=== PATIENT | female | born 1945 | race African-American/Black ===

== ENCOUNTER 2021-04-16 14:50 | Emergency (ER) | payer OTHER ==
--- OUTSIDE RECORDS SUMMARY | 2021-04-16 14:53 | XMS REPORT | Continuity of Care Document ---
:[address] [facility] t Address [address] [place] [place] [address] Care Team Providers Name Role Phone Tylor Avery MD Attending Clinician Smooth Nguyen MD Attending Clinician Unavailable Payers Payer Name Policy Type Policy Effective Date Expiration Date Sour ce Number COVID VACCINE [id number] 2020-11-25 [facility] ADMIN / 00:00:00 - Medical TESTINGCOVID Center VACCINE ADMIN / [id number] 01/2021-Present Problems This patient has no known problems. Allergies, Adverse Reactions, Alerts Allergy Allergy Status Severity Reaction(s) Onset Inactive Treating Comm ents Source Name Type Date Date Clinician [place] DA Active 2018-09 [facility] 0[facility]14 [place] [facility] d [facility] codeine DA Active SV 2018-09 [facility] 0-14 [place] 00:00: d 00 [facility] codeine DA Active 2017-09 [facility] 2-10 [place] 00:00: d 00 [facility] PCN DA Active SV 2017- [facility] 10-13 [facility] 00:00: d 00 [facility] Center Social History Social Habit Start Date Stop Date Quantity Comments Source Sex Assigned At [facility] Medications This patient has no known medications. Immunizations Ordered Immunization Filled Immunization Date Status Commen ts Source Name Name Covid-19 Vaccine 2020-12-[address] [facility] (Pf) 00:00:00 [facility] (Pfizer/biontech) Covid-19 Vaccine 2020-11-[address] [facility] (Pf) 00:00:00 [facility] (Pfizer/biontech) Procedures This patient has no known procedures. Plan of Care Planned Activity Planned Date Details Comments Source Future Scheduled 2021-05-[address] [facility] 00:00:00 (Season Ended) [code = Medic al Center INFLUENZA VACCINE (Season Ended)] Future Scheduled 2020-09-[address] [facility] Test 00:00:00 (12+) [code = Medical Center DEPRESSION SCREENING (12+)] Future Scheduled 2012 PNEUMOCOCCAL 65+ YRS [facility] - Test 00:00:00 (1 of 1 - Medical Center [id number] PCV13) [code = PNEUMOCOCCAL 65+ YRS (1 of 1 - [id number] PCV13)] Future Scheduled 1997 SHINGLES VACCINES ([address] [facility] - Test 00:00:00 of 2) [code = SHINGLES Medic al Center VACCINES (1 of 2)] Future Scheduled 1966 DTAP/TDAP/TD VACCINES [facility] 00:00:00 (1 - Tdap) [code = Medical C enter DTAP/TDAP/TD VACCINES (1 - Tdap)] Future Scheduled 1965 HEPATITIS C SCREENING [facility] 00:00:00 [code = HEPATITIS C Medical Center SCREENING] Future Scheduled [address] [facility] (procedure) [code = 374351476] Future Scheduled [address] [facility] 00:[facility]:00 [facility] colon (procedure) [code = 910354298] Encounters Start End Encounter Admission Attending Care Care Encounter Source Date/Time Date/Time Type Type Clinicians Facility Department ID 2020-06-22 2020-06-22 Outpatient [facility] [address] [facility] 10:39:00 10:39:00 Results Test Description Test Time Test Comments Results Result Comments Source COMPREHENSIVE METABOLIC PANEL 2019-06-19 04:51:00 Test Item Value Reference Range Interpretation Comme nts SODIUM (test code = NA) 136 mmol/L 137-145 L POTASSIUM (test code = K) 4.3 mmol/L 3.4-5.0 N CHLORIDE (test code = CL) 102 mmol/L 98-107 N CARBON DIOXIDE (test code = CO2) 27 mmol/L 22-30 N GLUCOSE (test code = GLU) 109 mg/dL 74-106 H BLOOD UREA NITROGEN (test code = 10 mg/dL 7-17 N BUN) GLOMERULAR FILTRATION RATE (test 91 >60 The estimated glomerular code = GFR) filtration rate is computed usingpatient ra ce, age (>18), sex, and serum creatinine. If anyof the neede d data elements are missing the Laboratory cannot compute an estimation of the glomerular filtration rate. CREATININE (test code = CREAT) 0.8 mg/dL 0.5-1.0 N TOTAL PROTEIN (test code = PROT) 5.5 g/dL 6.3-8.2 L ALBUMIN (test code = ALB) 2.8 g/dL 3.5-5.0 L CALCIUM (test code = CA) 8.2 mg/dL 8.4-10.2 L BILIRUBIN TOTAL (test code = 1.0 mg/dL 0.2-1.3 N BILT) BILIRUBIN CONJUGATED (test code 0 mg/dL 0-0.3 N ~~~~~~~~~~~~~~~~~~~~~~~~~~~~~~~ = BILCON) ~~~~~~~~~~~~~~~ ~~~~~~~~~~~~~~CO NJUGATED BILIRU BIN IS THE REPLACEMENT ASS AY FOR DIRECTBILIRUBIN .~~~~~~~~~~~~~~~ ~~~~~~~~~~~~~~~ ~~~~~~~~~~~~~~~~ ~~~~~~~~~~~~~~ BILIRUBIN UNCONJUGATED (test 0.9 mg/dL 0-1.1 N code = BILUNC) SGOT/AST (test code = AST) 21 U/L 15-46 N SGPT/ALT (test code = ALT) 27 U/L 13-69 N ALKALINE PHOSPHATASE (test code 55 U/L 38-126 N = ALKP) CBC W/AUTO [id number] 04:35:00 Test Item Value Reference Range Interpretation Comments WHITE BLOOD CELL (test code = 5.1 x10 3/uL 5.0-12.0 N WBC) RED BLOOD CELL (test code = 3.75 x10 6/uL 4.20-5.40 L RBC) HEMOGLOBIN (test code = HGB) 9.6 g/dL 12.0-16.0 L HEMATOCRIT (test code = HCT) 31.7 % 36.0-46.0 L MEAN CELL VOLUME (test code = 85 fL 81-99 N MCV) MEAN CELL HGB (test code = MCH) 25.6 pg 27-31 L MEAN CELL HGB CONCENTRATION 30.3 g/dL 33-37 L (test code = MCHC) RED CELL DISTRIBUTION WIDTH 15.5 % 11.5-15.5 N (test code = RDW) PLATELET COUNT (test code = 83 x10 3/uL 130-400 L PLT) MEAN PLATELET VOLUME (test code 11.9 fL 9.4-16.4 N = MPV) NEUTROPHIL % (test code = NT%) 78.3 % 43-65 H IMMATURE GRANULOCYTE % (test 0.8 % 0.0-2.0 N code = IG%) LYMPHOCYTE % (test code = LY%) 8.3 % 20.5-45.5 L MONOCYTE % (test code = MO%) 11.0 % 5.5-11.7 N EOSINOPHIL % (test code = EO%) 1.2 % 0.9-2.9 N BASOPHIL % (test code = BA%) 0.4 % 0.2-1.0 N NUCLEATED RBC % (test code = 0.0 % 0-1.0 N NRBC%) NEUTROPHIL # (test code = NT#) 3.98 x10 3/uL 2.2-4.8 N IMMATURE GRANULOCYTE # (test 0.04 x10 3/uL 0-0.03 H code = IG#) LYMPHOCYTE # (test code = LY#) 0.42 x10 3/uL 1.3-2.9 L MONOCYTE # (test code = MO#) 0.56 x10 3/uL 0.3-0.8 N EOSINOPHIL # (test code = EO#) 0.06 x10 3/uL 0.0-0.2 N BASOPHIL # (test code = BA#) 0.02 x10 3/uL 0.0-0.1 N - XR KNEE 1 OR 2 V [id number] 16:38:00 FAX: Crow Salas MD [phone] [place]: St: [facility] FAX: Benedict Zee MD [phone] Name: LILY MARISCAL [facility] : 1945 Age/S: 74/F [address] Unit #: [id number] Loc: C.[address] [place] [address] Phys: Crow Hickey MD Acct: [id number] Dis Date: Status: ADM IN PHONE #: [phone] Exam Date: 06/17/2019 1612 FAX #: [phone] Reason: POSTOP EXAMS: CPT CODE: [id number] XR KNEE 1 OR 2 V RT [id number] EXAM: Right knee series, 2 views Dictation location: B2 INDICATION: Postop COMPARISON: None. DISCUSSION: Frontal and crosstable lateral views of the right knee are submitted. There is slight motion artifact on the frontal view. There is appropriate appearance of the total right knee arthroplasty hardware, without evidence of fracture. IMPRESSION: Appropriate appearance of the total right knee arthroplasty hardware. at 1638 Reported and signed by: Triston Lara MD CC: Crow Hickey M.D.; Benedict Han MD Technologist: Rocio Bianchi Trnscrd Date/Time/By: 06/17/2019 (8097) : By: [email or web address] PAGE 1 Signed Report FAX: Corw Salas MD [phone] [place]: St: ADM FAX: Benedict Zee MD [phone] [facility] 1945 Age/S: 74[facility]F [address] Unit #: [id number] Loc: C [address] [place] [address] Phys: Crow Hickey MD Acct: [id number] Dis Date: Status: ADM IN PHONE #: [phone] Exam Date: 06/17/2019 1612 FAX #: [phone] Reason: POSTOP EXAMS: CPT CODE: [id number] XR KNEE 1 OR 2 V RT 25202 <Continued> Orig Print D/T: S: 06/17/2019 (6568) PAGE 2 Signed Report- XR CHEST 2 [id number] 10:27:00 FAX: Crow Salas MD [phone] [place]: St: PRE Name: LILY MARISCAL [facility] : 1945 Age/S: 74/F [address] Unit#: [id number] Loc: C.[address] [place] [id number] Phys: Crow Hickey MD Acct: [id number] Dis Date: Status: PRE IN PHONE #: [phone] Exam Date: 06/16/2019 1010 FAX #: [phone] Reason: PREOP EXAMS: CPT CODE: [id number] XR CHEST 2 V 00295 C3 EXAM: - XR CHEST 2 V HISTORY: PREOP COMPARISON: None FINDINGS: The lungs are clear. No pleural effusion or pneumothorax. The cardiac silhouette is within normal limits. No acute osseous abnormalities. IMPRESSION: No acute cardiopulmonary disease. at 1027 Reported and signed by: Arnulfo Juan MD CC: Crow Hickey M.D. Technologist: Evelyne Johnson; STUDENT 2ND YEAR Trnscrd Date/Time/By: 06/16/2019 (102) : By:[email or web address] PAGE 1 Signed Report FAX: Y Crow Hickey MD [phone] [place]: St: PRE Name: LILY MARISCAL [facility] : 1945 Age/S: 74/F [address] Unit #: [id number] Loc: C.[address], [place] [address] Phys: Crow Hickey MD Acct: [id number] Dis Date: Status: PRE IN PHONE #: [phone] Exam Date: 06/16/2019 1010 FAX #: [phone] Reason: PREOP EXAMS: CPT CODE: [id number] XR CHEST 2 V [id number] <Continued> Orig Print D/T: S: 06/16/2019 (1034) PAGE 2 Signed Report
--- NOTE | 2021-04-16 16:20 | RAD REPORT ---
EXAM DESCRIPTION: CT - Head Brain Wo Cont - 04/16/2021 3:46 pm CLINICAL HISTORY: CONFUSED, altered mental status COMPARISON: <Comparisons> TECHNIQUE: Axial 5 mm thick images of the head were obtained without IV contrast. All CT scans are performed using dose optimization technique as appropriate and may include automated exposure control or mA/KV adjustment according to patient size. FINDINGS: No intracranial hemorrhage, mass, edema or shift of mid-line structures. No acute infarcti on changes seen. No abnormal extra-axial fluid collections. Ventricles are normal. No significant atr ophy. Patient does have mild chronic ischemic change evident. Mastoid air cells and visualized portions of the paranasal sinuses are clear. No acute bony findings. IMPRESSION: Negative non-contrast CT head examination for acute finding.
[2021-04-16 17:21] LABS: Absolute Lymphocytes (CBC) 0.3 K/uL (0.7-4.9); Basophils % 0.3 % (0-1.3); Hematocrit 47.7 % (36.0-45.0); Lymphocytes % 2.1 % (15.3-44.8); MPV 9.2 fL (7.6-11.3); RBC Red Blood Cell Count 5.76 M/uL (3.86-4.86)
[2021-04-16 17:39] LABS: Bilirubin Direct 0.4 mg/dL (0-0.2); Bilirubin Total 1.6 mg/dL (0.2-1.0); Protein, Total 8.9 g/dL (6.4-8.2)
[2021-04-16 18:14] LABS: Blood Morphology Comment NOT SEEN (NOT SEEN); Platelet Estimate ADEQ; White Blood Cell Scan OK (OK)
[2021-04-16 18:27] LABS: Urine Blood 2+ (Negative); Urine Glucose Trace (Negative); Urine Protein 3+ (Negative); Urine Specific Gravity 1.025 (1.005-1.030)
[2021-04-16 18:55] LABS: Urine Bacteria >50 /HPF (<20)
[2021-04-16] MEDS ORDERED: CEFTRIAXONE/SWI 1gm 1 GM/10 ML SYR ONE (19:40)
--- NOTE | 2021-04-16 19:42 | RAD REPORT ---
EXAM DESCRIPTION: CT - Abdomen Pelvis W Contrast - 04/16/2021 7:01 pm CLINICAL HISTORY: ABD PAIN COMPARISON: No comparisons TECHNIQUE: Biphasic, helical CT imaging of the abdomen and pelvis was performed following 100 ml non -ionic IV contrast. No oral contrast administered. All CT scans are performed using dose optimization technique as appropriate and may include automated exposure control or mA/KV adjustment according to patient size. FINDINGS: No suspicious findings in the lung bases. Multiple liver cysts are present including a 3.4 centimeter left lobe cyst. No portal vein abnormalit y. No splenomegaly or focal splenic finding. No acute pancreatic process identifiable. Gallbladder is grossly dilated measuring 14 cm in length by 4.5 cm transverse. There is at least 1 l arge 2 centimeter gallstone present in the body. Additional stones and sludge could be present an occ ult on CT imaging. A 2 centimeter stone in the gallbladder may be present as well. Gallbladder wall is slightly thickened. Biliary tree is enlarged 8-9 mm. No duct stone seen. Duct stones can be occult . No pancreatic or duodenal mass identifiable. Symmetric renal function is seen with no hydronephrosis or suspicious renal mass. No pyelonephritis o r acute parenchymal process. Renal cysts are present. Largest is mid left kidney 5.3 cm. Small benign -appearing right adrenal mass present. Contracted urinary bladder shows no gross abnormality. No dilated bowel loops or bowel wall thickening. No acute bowel process is identifiable. There is div erticulosis without diverticulitis. Uterus is absent. No ovarian based mass identified. No free air, free fluid or inflammatory stranding. No hernia, mass or bulky lymphadenopathy. No suspicious bony findings. IMPRESSION: Markedly dilated gallbladder, possibly gallbladder hydrops, measuring 14 cm in length by 4.5 cm transverse. There is one 2 centimeter gallstone confirmed with of a second 2 centimeter galls tone suspected near the neck. Dilatation of the biliary tree to 8-9 mm with no duct stone seen. Duct stones can be occult. No acute or TAPE COATER process. No acute finding of the bowel.
--- NOTE | 2021-04-16 20:38 | RAD REPORT ---
EXAM DESCRIPTION: US - Abdomen Exam Limited - 04/16/2021 7:52 pm CLINICAL HISTORY: ABD PAIN COMPARISON: Abdomen Pelvis W Contrast dated 04/16/2021 FINDINGS: Dilated gallbladder is identified matching the CT finding. A 2 cm stone is seen near the n mayra of the gallbladder. No large quantity of sludge. A second stone, suspected on the CT study, could not be confirmed. Gallbladder wall does not appear thickened. No pericholecystic fluid. Common bile duct is upper normal to slightly enlarged. No duct stone identifiable. IMPRESSION: Approximately 2 centimeter stone is present in the neck of the gallbladder which is enla rged to 14 cm in length by approximately 4 cm diameter. Gallbladder wall is not thickened and no pericholecystic fluid confirmed. Upper normal to slightly enlarged biliary tree. No duct stone seen.
[2021-04-16 21:36] LABS: Troponin (Emerg Dept Use Only) 0.14 ng/mL (0.0-0.045)
[2021-04-16] MEDS ORDERED: NA CHLORIDE 0.9% 1,000 ML ONE (21:42)
--- NOTE | 2021-04-16 22:38 | ER ---
Nurse's Notes [facility] Name: Crystal Peterosn Age: 75 yrs Sex: Female : 1945 Arrival Date: 04/16/2021 Time: 14:58 Bed 25 Private MD: Diagnosis: Cholelithiasis with possible choledocolithisis;Dizzness;Elevated Troponin Level Presentation: 04/16 15:14 Chief complaint: Patient states: mid back pain, upper abd pain that began yesterday ss with confusion and intermittent nausea that started this morning. Coronavirus screen: Client denies travel out of the [place] in the last 14 days. Ebola Screen: Patient denies exposure to infectious person. Patient denies travel to an Ebola-affected area in the 21 days before illness onset. Initial Sepsis Screen: Does the patient meet any 2 criteria? No. Patient's initial sepsis screen is negative. Does the patient have a suspected source of infection? No. Patient's initial sepsis screen is negative. Risk Assessment: Do you want to hurt yourself or someone else? Patient reports no desire to harm self or others. Onset of symptoms was April 15, 2021. 15:14 Method Of Arrival: Ambulatory ss 15:14 Acuity: EFRAÍN 3 ss Historical: - Allergies: 15:17 codeine sulfate; ss - Home Meds: 15:17 amlodipine oral [Active]; rosuvastatin oral [Active]; Hydrochlorothiazide Oral [Active];ss - PMHx: 15:17 Hypertensive disorder; ss - Immunization history:: Adult Immunizations up to date, Client reports receiving the 2nd dose of the Covid vaccine. - Social history:: Smoking status: Patient denies any tobacco usage or history of. Screenin:30 Abuse screen: Denies threats or abuse. Denies injuries from another. Nutritional hb screening: No deficits noted. Tuberculosis screening: No symptoms or risk factors identified. Fall Risk None identified. Assessment: 17:30 General: Appears in no apparent distress. Behavior is calm, cooperative. Pain: Pain hb currently is 5 out of 10 on a pain scale. Neuro: Level of Consciousness is awake, alert, obeys commands, Oriented to person, place, situation. Cardiovascular: Patient's skin is warm and dry. Respiratory: Airway is patent Respiratory effort is even, unlabored, Respiratory pattern is regular, symmetrical. GI: No signs and/or symptoms were reported involving the gastrointestinal system. : No signs and/or symptoms were reported regarding the genitourinary system. EENT: No signs and/or symptoms were reported regarding the EENT system. Derm: Skin is pink, warm \\T\\ dry. Musculoskeletal: Reports back pain. 18:19 Reassessment: Patient appears in no apparent distress at this time. No changes from hb previously documented assessment. Patient and/or family updated on plan of care and expected duration. Pain level reassessed. 21:23 Reassessment: Patient appears in no apparent distress at this time. No changes from zb previously documented assessment. Patient and/or family updated on plan of care and expected duration. Pain level reassessed. Patient is alert, oriented x 3, equal unlabored respirations, skin warm/dry/pink. Iv fluid infusing. patient repositioned. 22:30 Reassessment: Patient appears in no apparent distress at this time. Patient and/or zb family updated on plan of care and expected duration. Pain level reassessed. Patient is alert, oriented x 3, equal unlabored respirations, skin warm/dry/pink. 23:31 Reassessment: patient c/o of pain. notified ecp. zb 23:58 Reassessment: report given to EMS patient transferred to [facility]. attempted to call zb family per pt requesting. Vital Signs: 15:14 BP 156 / 108; Pulse 107; Resp 16; Temp 97.1(TE); Pulse Ox 100% on R/A; Height 5 ft. 5 ss in. (165.10 cm); Pain 5/10; 18:00 BP 158 / 98; Pulse 102; Resp 17; Pulse Ox 100% on R/A; Pain 8/10; hb 21:20 BP 152 / 78; Pulse 95; Resp 16; Pulse Ox 99% on R/A; zb 23:29 BP 173 / 93; Pulse 103; Resp 18; Pulse Ox 100% on R/A; zb 23:37 BP 166 / 87; Pulse 96; Resp 16; Pulse Ox 100% on R/A; zb ED Course: 14:58 Patient arrived in ED. ds1 15:17 Triage completed. ss 15:17 Arm band placed on right wrist. ss 15:45 CT Head Brain wo Cont In Process Unspecified. EDMS 17:10 Initial lab(s) drawn, by me, sent to lab. Inserted saline lock: 22 gauge in right mb4 antecubital area, using aseptic technique. Blood collected. 17:27 Mary Castillo, RN is Primary Nurse. hb 17:30 Patient has correct armband on for positive identification. Bed in low position. Call light in reach. 18:09 Ottoniel Villalta MD is Attending Physician. tw4 19:06 CT Abd/Pelvis - IV Contrast Only In Process Unspecified. EDMS 19:12 Attending Physician role handed off by Ottoniel Villalta MD mh7 19:12 Don Valdes MD is Attending Physician. 7 19:27 Primary Nurse role handed off by Mary Castillo RN mw2 19:52 US Abdomen Limited In Process Unspecified. EDMS 19:59 Mary Castillo RN is Primary Nurse. hb 21:31 initiated a transfer with [employer] Supervisor from [facility]. He stated "[facility] at the moment.". 21:41 initiated a transfer with Nick from [facility] Transfer [place]. mw2 22:[address] Valdes with the GI doctor from [facility]. mw2 22:[address] Valdes with the Hospitalist from [facility]. mw2 22:51 Chest Single View XRAY In Process Unspecified. EDMS 23:13 administrative approval given by Nick Friend/ patient has been accepted to [address] [place] bed 2447/ Dr. Moe accepted the patient in transfer/ report to be called to [phone]. 04/17 00:02 No provider procedures requiring assistance completed. Patient transferred, IV remains zb in place. Administered Medications: 04/16 19:59 Drug: Rocephin (cefTRIAXone) 1 grams Route: IV; Rate: calculated rate; Site: right hb antecubital; 23:23 Follow up: Response: No adverse reaction; IV Status: Completed infusion; IV Intake: 10mlzb 21:22 Drug: NS 0.9% 1000 ml Route: IV; Rate: 1000 ml; Site: right antecubital; zb 23:24 Follow up: Response: No adverse reaction; IV Status: Completed infusion; IV Intake: zb 1000ml 23:23 Drug: Potassium Chloride 40 mEq Route: PO; zb 23:24 Follow up: Response: No adverse reaction zb 23:23 Drug: Zosyn (piperacillin-tazobactam) 3.375 grams Route: IVPB; Infused Over: 60 mins; zb Site: right antecubital; 23:52 Follow up: Response: No adverse reaction; IV Status: Infusion continued upon transfer; zb IV Intake: 10ml 23:23 Drug: Aspirin Chewable Tablet 324 mg Route: PO; zb 23:52 Follow up: Response: No adverse reaction zb 23:50 Drug: Tylenol 1000 mg Route: PO; zb 23:50 Follow up: Response: Medication administered at discharge. zb Intake: 23:23 IV: 10ml; Total: 10ml. zb 23:24 IV: 1000ml; Total: 1010ml. zb 23:52 IV: 10ml; Total: 1020ml. zb Outcome: 22:37 ER care complete, transfer ordered by MD. healy 04/17 00:04 Transferred by ground EMS to [facility], Transfer form completed. zb Condition: stable Instructed on the need for transfer. 00:05 Patient left the ED. zb Signatures: Dispatcher [employer] [facility] Yap Trayc ds1 Lee Ann Matthew RN RN ss Baxter, Heather, RN RN hb Wadley, Terrence, MD MD 4 Bernie Isaacs [facility] Claire Castillo 4 Don Valdes MD MD Ana Cristina Lou RN RN zb Corrections: (The following items were deleted from the chart) 04/16 22:02 21:31 initiated a transfer with [employer] Supervisor from [place] [id number] 22:37 22:[address] Valdes with the GI doctor from [place] [address] 23:23 21:41 initiated a transfer with Hortencia from [address] 23:23 22:[address] Valdes with the Hospitalist from [place] [address]
--- NOTE | 2021-04-16 22:38 | EDPHYS ---
Physician Documentation [facility] Name: Crystal Peterson Age: 75 yrs Sex: Female : 1945 Arrival Date: 04/16/2021 Time: 14:58 Bed 25 Private MD: ED Physician Don Valdes HPI: 04/16 18:38 This 75 yrs old Black Female presents to ER via Ambulatory with complaints of tw4 Confusion, Dizziness, Back Pain. 18:38 The patient presents with generalized weakness. Onset: The symptoms/episode tw4 began/occurred today. Context: occurred at home. Modifying factors: The symptoms are alleviated by nothing, the symptoms are aggravated by nothing. Associated signs and symptoms: Pertinent positives: abdominal pain, Back pain. Patient's baseline: Neuro: alert and fully oriented, Motor: no deficits, Ambulation: walks without assistance, Speech: normal, The patient has a previous history of chronic drug use. The patient has not experienced similar symptoms in the past. 18:38 Patient is a 75-year-old woman that comes emergency department complaint of upper tw4 right-sided abdominal pain radiates to her back. Patient denies nausea vomiting. Patient states when she initially came in she has some generalized weakness and felt slightly confused. Patient does not have any focal numbness or weakness. Patient denies any changes in her speech. Patient denies fevers or chills. Historical: - Allergies: 15:17 codeine sulfate; ss - Home Meds: 15:17 amlodipine oral [Active]; rosuvastatin oral [Active]; Hydrochlorothiazide Oral [Active];ss - PMHx: 15:17 Hypertensive disorder; ss - Immunization history:: Adult Immunizations up to date, Client reports receiving the 2nd dose of the Covid vaccine. - Social history:: Smoking status: Patient denies any tobacco usage or history of. ROS: 18:38 Constitutional: Negative for fever, chills, and weight loss, Eyes: Negative for injury, tw4 pain, redness, and discharge, Cardiovascular: Negative for chest pain, palpitations, and edema, Respiratory: Negative for shortness of breath, cough, wheezing, and pleuritic chest pain, MS/Extremity: Negative for injury and deformity, Skin: Negative for injury, rash, and discoloration, Neuro: Negative for headache, weakness, numbness, tingling, and seizure. 18:38 Abdomen/GI: Positive for abdominal pain, Negative for nausea and vomiting, nausea, vomiting, and diarrhea, nausea, vomiting, diarrhea, constipation. Exam: 18:38 Constitutional: This is a well developed, well nourished patient who is awake, alert, tw4 and in no acute distress. Head/Face: Normocephalic, atraumatic. Eyes: Pupils equal round and reactive to light, extra-ocular motions intact. Lids and lashes normal. Conjunctiva and sclera are non-icteric and not injected. Cornea within normal limits. Periorbital areas with no swelling, redness, or edema. Chest/axilla: Normal chest wall appearance and motion. Nontender with no deformity. No lesions are appreciated. Cardiovascular: Regular rate and rhythm with a normal S1 and S2. No gallops, murmurs, or rubs. Normal PMI, no JVD. No pulse deficits. Respiratory: Lungs have equal breath sounds bilaterally, clear to auscultation and percussion. No rales, rhonchi or wheezes noted. No increased work of breathing, no retractions or nasal flaring. Back: No spinal tenderness. No costovertebral tenderness. Full range of motion. MS/ Extremity: Pulses equal, no cyanosis. Neurovascular intact. Full, normal range of motion. Neuro: Awake and alert, GCS 15, oriented to person, place, time, and situation. Cranial nerves II-XII grossly intact. Motor strength 5/5 in all extremities. Sensory grossly intact. Cerebellar exam normal. Normal gait. Psych: Awake, alert, with orientation to person, place and time. Behavior, mood, and affect are within normal limits. 18:38 Abdomen/GI: Inspection: abdomen appears normal, Bowel sounds: normal, Palpation: moderate abdominal tenderness, in the right upper quadrant. Vital Signs: 15:14 BP 156 / 108; Pulse 107; Resp 16; Temp 97.1(TE); Pulse Ox 100% on R/A; Height 5 ft. 5 ss in. (165.10 cm); Pain 5/10; 18:00 BP 158 / 98; Pulse 102; Resp 17; Pulse Ox 100% on R/A; Pain 8/10; hb 21:20 BP 152 / 78; Pulse 95; Resp 16; Pulse Ox 99% on R/A; zb 23:29 BP 173 / 93; Pulse 103; Resp 18; Pulse Ox 100% on R/A; zb 23:37 BP 166 / 87; Pulse 96; Resp 16; Pulse Ox 100% on R/A; zb MDM: 22:34 Differential diagnosis: cardiac arrhythmia, hypovolemia, idiopathic dizziness, mh7 near-syncope, syncope. Data reviewed: vital signs, nurses notes, lab test result(s), cardiac enzymes, CBC, electrolytes, urinalysis, EKG, radiologic studies, CT scan, plain films, ultrasound. Data interpreted: Pulse oximetry: on room air is 99 %. Interpretation: normal. Counseling: I had a detailed discussion with the patient and/or guardian regarding: the historical points, exam findings, and any diagnostic results supporting the discharge/admit diagnosis, the presence of at least one elevated blood pressure reading (>120/80) during this emergency department visit, lab results, radiology results, the need to transfer to another facility, [facility] does not immediately have the required specialist. Response to treatment: the patient's symptoms have mildly improved after treatment. Physician consultation: Harsha Mello MD was contacted at 21:00, regarding patient's condition, after a discussion of the case, a recommendation for transfer for higher level of care is made. 22:37 Patient medically screened. [facility] 04/16 15:20 Order name: Basic Metabolic Panel; Complete Time: 18:04 04/16 18:33 Interpretation: Normal except: K 3.0; CL 97; GLUC 148; GFR 89; CA 10.5; NA 135. 04/16 15:20 Order name: CBC with Diff; Complete Time: 18:24 04/16 18:24 Interpretation: Normal except: WBC 14.90; RBC 5.76; HGB 15.1; HCT 47.7; MCH 26.2; MCHC tw4 31.6; GUERA% 92.1; LYM% 2.1. 04/16 15:20 Order name: Hepatic Function; Complete Time: 18:04 04/16 18:04 Interpretation: Normal except: A/G 0.8; GLOB 4.9; TP 8.9; BILID 0.4; BILIT 1.6. 04/16 15:20 Order name: Lipase; Complete Time: 18:04 tw4 08/14 18:05 Interpretation: Normal except: LIP 49. [facility] 04/16 15:20 Order name: Urine Microscopic Only; Complete Time: 19:12 [facility] 04/16 17:25 Order name: CBC Smear Scan; Complete Time: 18:24 [facility] 04/16 18:24 Interpretation: Within normal limits. [facility] 04/16 18:27 Order name: Urine Dipstick-Ancillary; Complete Time: 19:12 [facility] 04/16 18:57 Order name: Urine Culture [facility] 04/16 20:43 Order name: Troponin (emerg Dept Use Only) [facility] 04/16 20:44 Order name: Troponin (Emerg Dept Use Only); Complete Time: 22:17 [facility] 04/16 21:17 Order name: Blood Culture Adult (2) [facility] 04/16 21:18 Order name: Blood Culture [facility] 04/16 21:39 Order name: PROBNP [facility] 04/16 15:20 Order name: IV Saline Lock; Complete Time: 18:19 [facility] 04/16 15:20 Order name: CT Head Brain wo Cont; Complete Time: 18:04 [facility] 04/16 18:09 Interpretation: No acute disease except. [facility] 04/16 18:24 Order name: US Abdomen Limited; Complete Time: 21:01 [facility] 04/16 18:24 Order name: CT Abd/Pelvis - IV Contrast Only; Complete Time: 20:16 [facility] 04/16 21:38 Order name: Chest Single View XRAY [facility] 04/16 21:59 Order name: NT PRO-BNP; Complete Time: 22:17 [facility] 04/16 23:00 Order name: SARS-COV-2 RT PCR; Complete Time: 23:02 [facility] 04/16 15:20 Order name: Labs collected and sent; Complete Time: 17:56 [facility] 04/16 15:20 Order name: Urine Dipstick-Ancillary (obtain specimen); Complete Time: 18:19 [facility] 04/16 20:43 Order name: EKG - Nurse/Tech; Complete Time: 23:23 [facility] Administered Medications: 19:59 Drug: Rocephin (cefTRIAXone) 1 grams Route: IV; Rate: calculated rate; Site: right hb antecubital; 23:23 Follow up: Response: No adverse reaction; IV Status: Completed infusion; IV Intake: 10mlzb 21:22 Drug: NS 0.9% 1000 ml Route: IV; Rate: 1000 ml; Site: right antecubital; zb 23:24 Follow up: Response: No adverse reaction; IV Status: Completed infusion; IV Intake: zb 1000ml 23:23 Drug: Potassium Chloride 40 mEq Route: PO; zb 23:24 Follow up: Response: No adverse reaction zb 23:23 Drug: Zosyn (piperacillin-tazobactam) 3.375 grams Route: IVPB; Infused Over: 60 mins; zb Site: right antecubital; 23:52 Follow up: Response: No adverse reaction; IV Status: Infusion continued upon transfer; zb IV Intake: 10ml 23:23 Drug: Aspirin Chewable Tablet 324 mg Route: PO; zb 23:52 Follow up: Response: No adverse reaction zb 23:50 Drug: Tylenol 1000 mg Route: PO; zb 23:50 Follow up: Response: Medication administered at discharge. zb Disposition Summary: 04/16/21 22:37 Transfer Ordered Transfer Location: [place] [id number] Reason: Higher level of care [facility] Condition: Stable [facility] Problem: new [facility] Symptoms: have improved mh7 Accepting Physician: Dr. Loyola(04/17/21 00:05) zb Diagnosis - Cholelithiasis with possible choledocolithisis mh7 - Dizzness mh7 - Elevated Troponin Level 7 Forms: - Medication Reconciliation Form mh7 - SBAR form 7 Signatures: Dispatcher [employer] EDLee Ann Vazquez RN RN Mary Castillo RN RN Ottoniel Villalta MD MD tw4 Don Valdes MD MD 7 Ana Cristina Gordon RN RN zb Corrections: (The following items were deleted from the chart) 18:33 18:04 Normal except: K 3.0; CL 97; GLUC 148; GFR 89; CA 10.5. tw4 tw4 21:48 21:19 CORONAVIRUS+MR.LAB.BRZ ordered. EDMS EDMS 21:59 21:39 NT PRO-BNP ordered. EDMS EDMS 04/17 00:03 04/16 21:46 PROTIME (+INR)+COAG.LAB.BRZ ordered. EDMS EDMS 04/17 00:03 04/16 21:46 PTT, ACTIVATED+COAG.LAB.BRZ ordered. EDMS EDMS 04/17 00:05 04/16 22:37 Dr. Loyola mh7 zb
[2021-04-16] MEDS ORDERED: POTASSIUM CL SA 10 MEQ TAB PO ONE (23:01)
[2021-04-16] MEDS ORDERED: ASPIRIN 81 MG CHEWABLE TABLET ONE (23:20)
[2021-04-16] MEDS ORDERED: PIPERACIL/TAZO 3.375 GM VIAL IV ONE (23:20)
[2021-04-16] MEDS ORDERED: NA CHLORIDE 0.9% 100 ML ONE (23:21)
[2021-04-17] MEDS ORDERED: ACETAMINOPHEN 500 MG TAB ONE (00:08)
[2021-04-17 00:33] VITALS: TEMP 97.1
[2021-04-17 00:39] VITALS: O2SAT 100
[2021-04-17 00:42] VITALS: BP 166/87
--- NOTE | 2021-04-17 08:31 | RAD REPORT ---
EXAM DESCRIPTION: RAD - Chest Single View - 04/16/2021 10:51 pm CLINICAL HISTORY: dizziness COMPARISON: No comparisons FINDINGS: No evidence of edema or pneumonia. The heart size is within normal limits.No acute osseous abnormality. No significant pleural effusions or pneumothorax. IMPRESSION: No acute cardiopulmonary disease.
== END 2021-04-17 00:05 | disposition short-term general hospital (02) ==
LOC: ER 14:50
DX: K80.20 Calculus of gallbladder without cholecystitis without obstruction (principal); R77.8 Other specified abnormalities of plasma proteins; R42 Dizziness and giddiness; I10 Essential (primary) hypertension; Z20.822 Contact with and (suspected) exposure to COVID-19; Z88.5 Allergy status to narcotic agent
CPT/HCPCS: 96365; 96367; 93005; 87040 ×2; 87088; 85025; 87086; 80048; 36415; 80076; 84484; 83690; 83880; 70450; 74177; 71045; 76705; 99285; 96366; U0003; Q9967; J2543; J0696; J7030; 81003; 81015